=== PATIENT | female | born 1980 | race Caucasian/White ===

== ENCOUNTER → 2018-03-24 | Outpatient (REF) ==
--- NOTE | 2018-03-24 09:18 | Diagnostic Imaging Report ---
INDICATION: Positive TB skin test. FINDINGS: There are no radiographic findings suggestive of acute or chronic thoracic involvement by tuberculosis. The study is normal. The lungs are clear. There is no hilar or mediastinal irregularity. No failure, effusion, or pneumothorax. No suspicious calcifications. IMPRESSION: Normal two-view chest. Dictated by: Dictated on workstation # [id number]
== END | disposition home or self-care (01) ==
LOC: OCC 08:43
PROVIDERS: ATTEND Nurse Practitioner Family
CPT/HCPCS: 71046